=== PATIENT | male | born 1965 | race Caucasian/White ===

== ENCOUNTER 2019-08-17 07:51 | Emergency (ER) | payer MEDICAID, OTHER ==
[~2019-08-17] VITALS: Ht 185.4 cm; Wt 97.0 kg
[2019-08-17 09:00] LABS: BASOPHILS # (AUTO) 0.1 X10'3 (0-0.2); BASOPHILS % (AUTO) 1.1 % (0-1); EOSINOPHILS # (AUTO) 0.3 X10'3 (0-0.9); EOSINOPHILS % (AUTO) 3.3 % (0-6); HEMATOCRIT 39.6 % (42.0-52.0); HEMOGLOBIN 13.4 g/dl (14.0-17.9); LYMPHOCYTES # (AUTO) 1.9 X10'3 (1.1-4.8); LYMPHOCYTES % (AUTO) 23.5 % (21-51); MEAN CORPUSCULAR HEMOGLOBIN 28.6 PG (27.0-31.0); MEAN CORPUSCULAR HGB CONC 33.9 g/dL (33.0-36.5); MEAN CORPUSCULAR VOLUME 84.5 FL (78-98); MEAN PLATELET VOLUME 8.3 FL (7.4-10.4); MONOCYTES % (AUTO) 11.9 % (2-12); NEUTROPHILS # (AUTO) 4.8 X10'3 (1.8-7.7); NEUTROPHILS % (AUTO) 60.2 % (42-75); PLATELET COUNT 266 X10'3 (140-440); RED BLOOD COUNT 4.69 X10'6 (4.70-6.10); RED CELL DISTRIBUTION WIDTH 13.1 % (11.5-14.5)
[2019-08-17 09:20] LABS: ALANINE AMINOTRANSFERASE 43 U/L (12-78); ALBUMIN 3.5 G/DL (3.4-5.0); ALKALINE PHOSPHATASE 96 IU/L (46-116); ANION GAP 6 (8-16); ASPARTATE AMINO TRANSFERASE 23 U/L (10-37); BILIRUBIN,TOTAL 0.4 MG/DL (0.1-1.0); BLOOD UREA NITROGEN 24 MG/DL (7-18); BUN/CREATININE RATIO 24.7 (5.4-32.0); CALCIUM 9.1 MG/DL (8.5-10.1); CHLORIDE 105 MMOL/L (99-107); CREATININE 0.97 MG/DL (0.60-1.10); GLUCOSE 305 MG/DL (70-104); POTASSIUM 4.6 MMOL/L (3.5-5.1); SODIUM 138 MMOL/L (135-145); TOTAL CARBON DIOXIDE 26.9 MMOL/L (24-32); eGFR 80 ML/MIN
[2019-08-17] MEDS ORDERED: POTA20TA19 PO (09:27)
[2019-08-17] MEDS ORDERED: FURO-149 PO (09:27)
[2019-08-17] MEDS ORDERED: MUPI22OI30 TOP (09:27)
--- NOTE | 2019-08-17 10:08 | NUR ---
276bs checked as per patients request
[2019-08-17] MEDS ORDERED: DOXY100C2 PO (10:47)
[2019-08-17 11:00] VITALS: BP 142/78
== END 2019-08-17 11:03 | disposition home or self-care (01) ==
LOC: ER 07:51
DX: S81.801A Unspecified open wound, right lower leg, initial encounter (principal); R60.0 Localized edema; E11.9 Type 2 diabetes mellitus without complications; F32.9 Major depressive disorder, single episode, unspecified; Z88.1 Allergy status to other antibiotic agents; Z79.899 Other long term (current) drug therapy; X58.XXXA Exposure to other specified factors, initial encounter; Y93.89 Activity, other specified; Y92.89 Other specified places as the place of occurrence of the external cause; Y99.8 Other external cause status
CPT/HCPCS: 36415; 80053; 82948; 85025; 93970; 99284

== ENCOUNTER 2020-06-29 14:37 | Emergency (ER) | payer MEDICAID ==
[~2020-06-29] VITALS: Ht 185.4 cm; Wt 95.5 kg
[~2020-06-29 14:37] MED LIST: FURO-149 PO; POTA20TA19 PO
[2020-06-29 14:45] VITALS: BP 139/75
[2020-06-29] MEDS ORDERED: SULF1TAB49 PO (15:08)
== END 2020-06-29 15:18 | disposition home or self-care (01) ==
LOC: ER 14:38
DX: L03.116 Cellulitis of left lower limb (principal); E11.9 Type 2 diabetes mellitus without complications; Z88.1 Allergy status to other antibiotic agents; Z88.8 Allergy status to other drugs, medicaments and biological substances; Z79.899 Other long term (current) drug therapy
CPT/HCPCS: 99283

== ENCOUNTER 2021-02-20 06:40 | Emergency (ER) | payer MEDICAID ==
[~2021-02-20] VITALS: Ht 185.4 cm; Wt 95.5 kg
[2021-02-20] MEDS ORDERED: normal saline 1000ML IV soln IVB ONE ×2 (07:05)
[2021-02-20] MEDS ORDERED: ondansetron/PF 4mg/2ml inj IV ONE (07:05)
[2021-02-20] MEDS ORDERED: pantoprazole 40 MG vial IV ONE (07:05)
[2021-02-20 07:58] LABS: BASOPHILS # (AUTO) 0.1 X10'3 (0-0.2); BASOPHILS % (AUTO) 0.7 % (0-1); EOSINOPHILS # (AUTO) 0.2 X10'3 (0-0.9); EOSINOPHILS % (AUTO) 1.7 % (0-6); HEMATOCRIT 46.3 % (42.0-52.0); HEMOGLOBIN 15.7 g/dl (14.0-17.9); LYMPHOCYTES # (AUTO) 1.8 X10'3 (1.1-4.8); LYMPHOCYTES % (AUTO) 20.6 % (21-51); MEAN CORPUSCULAR HEMOGLOBIN 28.5 PG (27.0-31.0); MEAN CORPUSCULAR HGB CONC 33.9 g/dL (33.0-36.5); MEAN CORPUSCULAR VOLUME 84.1 FL (78-98); MEAN PLATELET VOLUME 8.6 FL (7.4-10.4); MONOCYTES # (AUTO) 0.9 X10'3 (0-0.9); MONOCYTES % (AUTO) 10.6 % (2-12); NEUTROPHILS # (AUTO) 5.8 X10'3 (1.8-7.7); NEUTROPHILS % (AUTO) 66.4 % (42-75); PLATELET COUNT 270 X10'3 (140-440); WHITE BLOOD COUNT 8.8 X10'3 (4.5-11.0)
[2021-02-20 09:44] VITALS: BP 143/78
[2021-02-20 10:07] LABS: ALANINE AMINOTRANSFERASE 30 U/L (12-78); ALBUMIN 3.5 G/DL (3.4-5.0); ALKALINE PHOSPHATASE 93 IU/L (46-116); ANION GAP 12 (8-16); ASPARTATE AMINO TRANSFERASE 12 U/L (10-37); BILIRUBIN,TOTAL 0.6 MG/DL (0.1-1.0); BLOOD UREA NITROGEN 17 MG/DL (7-18); CALCIUM 8.9 MG/DL (8.5-10.1); CHLORIDE 102 MMOL/L (99-107); ETHANOL < 0.010 GM/DL (0.0-0.010); GLUCOSE 190 MG/DL (70-104); SODIUM 140 MMOL/L (135-145); TOTAL CARBON DIOXIDE 25.9 MMOL/L (24-32); TOTAL PROTEIN 7.1 G/DL (6.4-8.2); eGFR 77 ML/MIN
[2021-02-20 10:23] LABS: UA COLLECTION TYPE CLN CATCH MIDSTREAM; URINE AMPHETAMINE SCREEN POSITIVE (Neg); URINE BARBITUATE SCREEN NEGATIVE (Neg); URINE BENZODIAZEPINES SCREEN NEGATIVE (Neg); URINE CANNABINOID SCREEN NEGATIVE (Neg); URINE COCAINE SCREEN NEGATIVE (Neg); URINE METHADONE SCREEN NEGATIVE (Neg); URINE OPIATE SCREEN NEGATIVE (Neg); URINE PHENCYCLIDINE SCREEN NEGATIVE (Neg)
[2021-02-20 10:24] LABS: CLARITY,URINE CLEAR (Clear); COLOR,URINE YELLOW (Yellow); GLUCOSE, URINE NEGATIVE (Neg); KETONES,URINE 80 mg/dl (Neg); LEUKOCYTE ESTERASE ,URINE NEGATIVE (Neg); NITRITES, URINE NEGATIVE (Neg); OCCULT BLOOD,URINE NEGATIVE (Neg); PROTEIN,URINE 100 mg/dl (Neg); UROBILINOGEN,URINE 0.2 E.U/dL (0.2-1.0)
[2021-02-20 10:27] LABS: BACTERIA,URINE NONE SEEN /HPF (Neg); MUCUS STRANDS MODERATE /LPF (Neg); RBC,URINE NONE SEEN /HPF (0-2); SQUAMOUS EPITHELIAL CELL,UR NONE SEEN /LPF (FEW); WBC,URINE 0-4 /HPF (0-4)
[2021-02-20] MEDS ORDERED: PANT-47 PO (10:31)
[2021-02-20] MEDS ORDERED: ONDA8TAB13 PO (10:31)
== END 2021-02-20 10:55 | disposition home or self-care (01) ==
LOC: ER 06:41
DX: R11.10 Vomiting, unspecified (principal); F15.929 Other stimulant use, unspecified with intoxication, unspecified; E11.9 Type 2 diabetes mellitus without complications; F32.9 Major depressive disorder, single episode, unspecified; Z88.1 Allergy status to other antibiotic agents; Z79.899 Other long term (current) drug therapy
CPT/HCPCS: 36415; 71045; 80053; 80305; 80320; 81001; 83605; 84484; 85025; 93005; 96361; 96374; 96375; 99285; C9113; J2405; J7030

== ENCOUNTER 2021-08-21 08:56 | Emergency (ER) | payer MEDICAID ==
[~2021-08-21] VITALS: Ht 185.4 cm; Wt 93.2 kg
[~2021-08-21 08:56] MED LIST changes: +ONDA8TAB13 PO; +PANT-47 PO; +POTA-208 PO; -POTA20TA19 PO
[2021-08-21 11:32] LABS: BASOPHILS # (AUTO) 0.1 X10'3 (0-0.2); BASOPHILS % (AUTO) 0.8 % (0-1); EOSINOPHILS # (AUTO) 0.2 X10'3 (0-0.9); EOSINOPHILS % (AUTO) 2.3 % (0-6); HEMATOCRIT 42.8 % (42.0-52.0); HEMOGLOBIN 14.2 g/dl (14.0-17.9); LYMPHOCYTES # (AUTO) 1.4 X10'3 (1.1-4.8); LYMPHOCYTES % (AUTO) 19.4 % (21-51); MEAN CORPUSCULAR HEMOGLOBIN 28.1 PG (27.0-31.0); MEAN CORPUSCULAR HGB CONC 33.2 g/dL (33.0-36.5); MEAN CORPUSCULAR VOLUME 84.4 FL (78-98); MEAN PLATELET VOLUME 9.2 FL (7.4-10.4); MONOCYTES # (AUTO) 0.9 X10'3 (0-0.9); MONOCYTES % (AUTO) 11.6 % (2-12); NEUTROPHILS # (AUTO) 4.9 X10'3 (1.8-7.7); NEUTROPHILS % (AUTO) 65.9 % (42-75); PLATELET COUNT 265 X10'3 (140-440); RED BLOOD COUNT 5.07 X10'6 (4.70-6.10); RED CELL DISTRIBUTION WIDTH 14.1 % (11.5-14.5); WHITE BLOOD COUNT 7.4 X10'3 (4.5-11.0)
[2021-08-21 11:39] LABS: D-DIMER 0.47 MG/L FEU (0-0.50)
[2021-08-21 11:52] LABS: ALANINE AMINOTRANSFERASE 60 U/L (12-78); ALBUMIN 3.2 G/DL (3.4-5.0); ALBUMIN/GLOBULIN RATIO 0.9 (1.1-1.5); ALKALINE PHOSPHATASE 155 IU/L (46-116); ANION GAP 9 (8-16); ASPARTATE AMINO TRANSFERASE 62 U/L (10-37); BILIRUBIN,TOTAL 0.4 MG/DL (0.1-1.0); BLOOD UREA NITROGEN 24 MG/DL (7-18); BUN/CREATININE RATIO 25.5 (5.4-32.0); CALCIUM 8.8 MG/DL (8.5-10.1); CHLORIDE 106 MMOL/L (99-107); CREATININE 0.94 MG/DL (0.60-1.10); GLUCOSE 313 MG/DL (70-104); SODIUM 140 MMOL/L (135-145); TOTAL CARBON DIOXIDE 24.7 MMOL/L (24-32); TOTAL PROTEIN 6.9 G/DL (6.4-8.2); eGFR 82 ML/MIN
[2021-08-21 12:28] VITALS: BP 120/84
[2021-08-21] MEDS ORDERED: DOXY100C97 PO (13:11)
[2021-08-21] MEDS ORDERED: AMOX-580 PO (13:11)
== END 2021-08-21 13:35 | disposition home or self-care (01) ==
LOC: ER 08:56
DX: J18.9 Pneumonia, unspecified organism (principal); Z20.822 Contact with and (suspected) exposure to COVID-19; E11.9 Type 2 diabetes mellitus without complications; R06.02 Shortness of breath; R05.9 Cough, unspecified; F32.A Depression, unspecified; Z88.1 Allergy status to other antibiotic agents; Z79.899 Other long term (current) drug therapy
CPT/HCPCS: 36415; 71045; 80053; 82948; 84484; 85025; 85379; 87635; 99284; C9803

== ENCOUNTER 2021-08-25 15:43 | Inpatient (IN) | payer MEDICAID ==
[~2021-08-25] VITALS: Ht 177.8 cm; Wt 93.0 kg
[~2021-08-25 15:43] MED LIST changes: +AMOX-580 PO; +DOXY100C97 PO
[2021-08-25 16:43] LABS: BASOPHILS # (AUTO) 0.1 X10'3 (0-0.2); BASOPHILS % (AUTO) 0.9 % (0-1); EOSINOPHILS # (AUTO) 0.2 X10'3 (0-0.9); EOSINOPHILS % (AUTO) 2.3 % (0-6); HEMATOCRIT 42.7 % (42.0-52.0); HEMOGLOBIN 14.1 g/dl (14.0-17.9); LYMPHOCYTES # (AUTO) 1.7 X10'3 (1.1-4.8); LYMPHOCYTES % (AUTO) 19.6 % (21-51); MEAN CORPUSCULAR HEMOGLOBIN 27.6 PG (27.0-31.0); MEAN CORPUSCULAR HGB CONC 33.1 g/dL (33.0-36.5); MEAN CORPUSCULAR VOLUME 83.4 FL (78-98); MEAN PLATELET VOLUME 8.8 FL (7.4-10.4); MONOCYTES # (AUTO) 0.9 X10'3 (0-0.9); MONOCYTES % (AUTO) 10.1 % (2-12); NEUTROPHILS # (AUTO) 5.7 X10'3 (1.8-7.7); NEUTROPHILS % (AUTO) 67.1 % (42-75); PLATELET COUNT 293 X10'3 (140-440); RED BLOOD COUNT 5.12 X10'6 (4.70-6.10); RED CELL DISTRIBUTION WIDTH 13.9 % (11.5-14.5); WHITE BLOOD COUNT 8.5 X10'3 (4.5-11.0)
[2021-08-25 16:50] LABS: D-DIMER 0.47 MG/L FEU (0-0.50)
[2021-08-25 17:02] LABS: ALANINE AMINOTRANSFERASE 44 U/L (12-78); ALBUMIN 3.2 G/DL (3.4-5.0); ALBUMIN/GLOBULIN RATIO 0.9 (1.1-1.5); ALKALINE PHOSPHATASE 133 IU/L (46-116); ANION GAP 11 (8-16); ASPARTATE AMINO TRANSFERASE 20 U/L (10-37); BILIRUBIN,TOTAL 0.6 MG/DL (0.1-1.0); BLOOD UREA NITROGEN 19 MG/DL (7-18); BUN/CREATININE RATIO 24.4 (5.4-32.0); CALCIUM 8.9 MG/DL (8.5-10.1); CHLORIDE 105 MMOL/L (99-107); CREATININE 0.78 MG/DL (0.60-1.10); GLUCOSE 315 MG/DL (70-104); POTASSIUM 4.7 MMOL/L (3.5-5.1); SODIUM 136 MMOL/L (135-145); TOTAL CARBON DIOXIDE 19.9 MMOL/L (24-32); TOTAL PROTEIN 6.6 G/DL (6.4-8.2); eGFR > 90 ML/MIN
[2021-08-25] MEDS ORDERED: iohexol 350MG/ML 100ml bottle IV ONE (17:30)
--- NOTE | 2021-08-25 17:41 | NUR ---
Pt up to bathroom. States he is steady on his feet and doesn't need O2. Persistently refused bedside commode.
--- NOTE | 2021-08-25 17:59 | NUR ---
When i mentioned to pt that the doc needed a UA. Pt said, "what are they going to test it for?" "because i went to a constitution party the other day and I don't want to expose it or whatever."
--- NOTE | 2021-08-25 18:43 | NUR ---
Note césar in EDM - 08/25/21 at 1851 by JAIRO assumed care of patient from Ezra Ramirez+[id number]. Diminished lung sounds, wet cough. Skin warm and dry. awaiting room. patient updated, requesting to eat.
--- NOTE | 2021-08-25 18:48 | NUR ---
Bonifacio bradyashish in [facility] - 08/25/21 at 1850 by JAIRO PATIENT AMBULATES TO BATHROOM, GAIT STEADY
[2021-08-25 20:44] LABS: URINE AMPHETAMINE SCREEN POSITIVE (Neg); URINE BARBITUATE SCREEN NEGATIVE (Neg); URINE BENZODIAZEPINES SCREEN NEGATIVE (Neg); URINE CANNABINOID SCREEN NEGATIVE (Neg); URINE COCAINE SCREEN NEGATIVE (Neg); URINE METHADONE SCREEN NEGATIVE (Neg); URINE OPIATE SCREEN NEGATIVE (Neg); URINE PHENCYCLIDINE SCREEN NEGATIVE (Neg)
[2021-08-25] MEDS ORDERED: mag hydrox/Alum hydrox/simeth 30ml oral suspension PO PRN (20:45)
[2021-08-25] MEDS ORDERED: HYDROcodone/acetaminophen 5mg/325mg tablet PO PRN (20:45)
[2021-08-25] MEDS ORDERED: acetaminophen 325mg tablet PO PRN ×2 (20:45)
[2021-08-25] MEDS ORDERED: ipratropium/albuterol 3ml nebule NEB PRN (20:45)
[2021-08-25] MEDS ORDERED: magnesium hydroxide 30ml (MOM) UD suspension PO PRN (20:45)
[2021-08-25] MEDS ORDERED: acetaminophen 650mg rectal suppository RC PRN (20:45)
[2021-08-25] MEDS ORDERED: morphine 2 MG/ML inj. syringe IV PRN ×2 (20:45)
[2021-08-25] MEDS ORDERED: ondansetron 4mg rapidly disintigrating tab PO PRN (20:45)
[2021-08-25] MEDS ORDERED: HYDROcodone/acetaminophen 10/325mg tab PO PRN (20:45)
[2021-08-25] MEDS ORDERED: diphenhydrAMINE 25mg capsule PO PRN (20:45)
[2021-08-25] MEDS ORDERED: diphenhydrAMINE 50 mg/ml inj IV PRN (20:45)
[2021-08-25] MEDS ORDERED: ondansetron/PF 4mg/2ml inj IV PRN (20:45)
[2021-08-25] MEDS ORDERED: bisacodyl 10mg suppository rectal RC PRN (20:45)
[2021-08-25] MEDS ORDERED: ROSU20TA31 PO (20:55)
[2021-08-25] MEDS ORDERED: dextrose 50%-water 50ml dispensing syringe IV PRN ×2 (20:55)
[2021-08-25] MEDS ORDERED: MESSAGE TO PHARMACY PO ONE (20:55)
[2021-08-25] MEDS ORDERED: glucagon, human recombinant 1mg kit SUBCUT PRN (20:55)
[2021-08-25] MEDS ORDERED: INSU100I48 SQ (20:55)
[2021-08-25] MEDS ORDERED: INSU100I71 SQ (20:55)
[2021-08-25] MEDS ORDERED: DEXTROSE 15 GM of carb/4 tabs (each vial/BOTTLE has 4 tablets) PO PRN ×2 (20:55)
[2021-08-25] MEDS ORDERED: insulin glargine (Lantus) pen - multi-dose SQ SCH (21:00)
[2021-08-25 21:11] LABS: HEMOGLOBIN A1C 10.6 % (4.5-6.2)
[2021-08-25 21:11] LABS: CLARITY,URINE CLEAR (Clear); COLOR,URINE YELLOW (Yellow); GLUCOSE, URINE 500 mg/dl (Neg); KETONES,URINE NEGATIVE (Neg); LEUKOCYTE ESTERASE ,URINE NEGATIVE (Neg); NITRITES, URINE NEGATIVE (Neg); OCCULT BLOOD,URINE TRACE-INTACT (Neg); PH,URINE 5.5 (4.8-8.0); PROTEIN,URINE 100 mg/dl (Neg); UROBILINOGEN,URINE 0.2 E.U/dL (0.2-1.0)
[2021-08-25] MEDS ORDERED: NPH,100V SQ (21:15)
[2021-08-25 21:23] LABS: UA COLLECTION TYPE VOIDED
[2021-08-25 21:25] LABS: RBC,URINE 0-2 /HPF (0-2); WBC,URINE 0-4 /HPF (0-4)
[2021-08-25 21:26] LABS: BACTERIA,URINE NONE SEEN /HPF (Neg)
[2021-08-25 21:27] LABS: SQUAMOUS EPITHELIAL CELL,UR FEW /LPF (FEW)
[2021-08-25 21:28] LABS: LIPASE < 50 U/L (73-393); MAGNESIUM 2.1 MG/DL (1.5-2.4)
[2021-08-25] MEDS: furosemide 10 MG/1 ML 10ml inj IV SCH (21:31)
[2021-08-25 21:39] LABS: MUCUS STRANDS FEW /LPF (Neg)
[2021-08-25 21:44] LABS: APTT 28 SECONDS (22-32)
[2021-08-25 21:51] LABS: CREATINE KINASE 149 U/L (39-308)
[2021-08-25 23:00] VITALS: BP 122/87
[2021-08-25] MEDS: methylPREDNISolone sod succ 125mg/2ml vial IV SCH (23:56)
[2021-08-25] MEDS: heparin, porcine 5000 units/ml vial SQ SCH (23:57)
[2021-08-26] MEDS: temazepam 15mg capsule PO PRN ×2 (01:53→23:33)
[2021-08-26 06:00] VITALS: BP 124/85
[2021-08-26 07:13] LABS: BASOPHILS % (AUTO) 0.3 % (0-1); EOSINOPHILS % (AUTO) 0.3 % (0-6); HEMATOCRIT 45.7 % (42.0-52.0); HEMOGLOBIN 15.1 g/dl (14.0-17.9); LYMPHOCYTES # (AUTO) 0.8 X10'3 (1.1-4.8); LYMPHOCYTES % (AUTO) 11.4 % (21-51); MEAN CORPUSCULAR HEMOGLOBIN 27.7 PG (27.0-31.0); MEAN CORPUSCULAR HGB CONC 32.9 g/dL (33.0-36.5); MEAN CORPUSCULAR VOLUME 84.3 FL (78-98); MEAN PLATELET VOLUME 9.3 FL (7.4-10.4); MONOCYTES # (AUTO) 0.2 X10'3 (0-0.9); MONOCYTES % (AUTO) 2.1 % (2-12); NEUTROPHILS # (AUTO) 6.3 X10'3 (1.8-7.7); NEUTROPHILS % (AUTO) 85.9 % (42-75); PLATELET COUNT 320 X10'3 (140-440); RED BLOOD COUNT 5.42 X10'6 (4.70-6.10); WHITE BLOOD COUNT 7.3 X10'3 (4.5-11.0)
[2021-08-26 07:53] LABS: ALANINE AMINOTRANSFERASE 43 U/L (12-78); ALBUMIN 3.3 G/DL (3.4-5.0); ALBUMIN/GLOBULIN RATIO 0.9 (1.1-1.5); ALKALINE PHOSPHATASE 142 IU/L (46-116); ANION GAP 16 (8-16); ASPARTATE AMINO TRANSFERASE 15 U/L (10-37); BILIRUBIN,TOTAL 0.8 MG/DL (0.1-1.0); BLOOD UREA NITROGEN 23 MG/DL (7-18); BUN/CREATININE RATIO 21.3 (5.4-32.0); CALCIUM 9.1 MG/DL (8.5-10.1); CHLORIDE 100 MMOL/L (99-107); CHOLESTEROL 194 MG/DL (0-200); CREATININE 1.08 MG/DL (0.60-1.10); HDL CHOLESTEROL 48 MG/DL (35-60); POTASSIUM 5.5 MMOL/L (3.5-5.1); SODIUM 135 MMOL/L (135-145); TOTAL CARBON DIOXIDE 18.6 MMOL/L (24-32); eGFR 70 ML/MIN
[2021-08-26] MEDS ORDERED: levoFLOXACIN-Levaquin 750MG/D5 150 ML IV SCH (08:00)
[2021-08-26 08:09] LABS: LDL CHOLESTEROL 130 MG/DL (50-100); TRIGLYCERIDES 52 MG/DL (20-135)
[2021-08-26 08:20] LABS: GLUCOSE 495 MG/DL (70-104)
[2021-08-26] MEDS: methylPREDNISolone sod succ 125mg/2ml vial IV SCH ×2 (08:47→16:14)
[2021-08-26] MEDS: heparin, porcine 5000 units/ml vial SQ SCH ×3 (08:47→23:21)
[2021-08-26] MEDS: furosemide 10 MG/1 ML 10ml inj IV SCH (08:48)
[2021-08-26] MEDS: atorvastatin 20mg tablet PO SCH (08:48)
[2021-08-26] MEDS: docusate sod 100mg capsule PO SCH ×2 (08:48→19:29)
[2021-08-26] MEDS: lisinopril 5mg tablet PO SCH (08:49)
[2021-08-26] MEDS: aspirin 81mg, enteric-coated 1 TAB TABLET.DR PO SCH (08:49)
[2021-08-26] MEDS: spironolactone 25 MG tablet PO SCH (08:50)
[2021-08-26] MEDS: insulin Lispro (HumaLOG) vial - multi-dose SQ SCH ×4 (09:08→21:13)
[2021-08-26 11:00] VITALS: BP 126/89
--- NOTE | 2021-08-26 13:46 | NUR ---
DM consult: Pt w/ hx DM2 and A1c 10.6 per EMR. Attempted to wake pt several times at bedside, however pt would not wake up w/ verbal cues. Pt would benefit from DM education and will follow up at a later time. Addendum: 08/26/21 at 1346 by Rosa Han Institutional Custodian RD Amended: Links added. Addendum: 08/26/21 at [address] I have reviewed and agree with note by Institutional CustodianAshlee Zhou RD
[2021-08-26 15:00] VITALS: BP 127/86
[2021-08-26 18:00] VITALS: BP 98/66
[2021-08-26] MEDS: furosemide 40mg/4ml inj IV SCH (20:53)
[2021-08-26] MEDS: metoprolol tartrate 12.5mg (1/2 tablet) PO SCH (20:53)
[2021-08-26] MEDS ORDERED: insulin glargine (Lantus) pen - multi-dose SQ SCH (21:00)
[2021-08-26 22:00] VITALS: BP 115/69
[2021-08-27] VITALS (7 sets, daily range): BP systolic 91–113; BP diastolic 60–79
[2021-08-27 06:10] LABS: BASOPHILS % (AUTO) 0.1 % (0-1); EOSINOPHILS # (AUTO) 0.1 X10'3 (0-0.9); EOSINOPHILS % (AUTO) 0.3 % (0-6); HEMOGLOBIN 13.6 g/dl (14.0-17.9); LYMPHOCYTES # (AUTO) 2.2 X10'3 (1.1-4.8); LYMPHOCYTES % (AUTO) 12.6 % (21-51); MEAN CORPUSCULAR HEMOGLOBIN 27.6 PG (27.0-31.0); MEAN CORPUSCULAR HGB CONC 33.2 g/dL (33.0-36.5); MEAN CORPUSCULAR VOLUME 83.2 FL (78-98); MEAN PLATELET VOLUME 9.5 FL (7.4-10.4); MONOCYTES # (AUTO) 1.7 X10'3 (0-0.9); MONOCYTES % (AUTO) 9.8 % (2-12); NEUTROPHILS # (AUTO) 13.3 X10'3 (1.8-7.7); NEUTROPHILS % (AUTO) 77.2 % (42-75); PLATELET COUNT 323 X10'3 (140-440); RED BLOOD COUNT 4.92 X10'6 (4.70-6.10); RED CELL DISTRIBUTION WIDTH 13.7 % (11.5-14.5); WHITE BLOOD COUNT 17.2 X10'3 (4.5-11.0)
[2021-08-27 06:34] LABS: ALANINE AMINOTRANSFERASE 37 U/L (12-78); ALBUMIN 2.9 G/DL (3.4-5.0); ALBUMIN/GLOBULIN RATIO 0.9 (1.1-1.5); ALKALINE PHOSPHATASE 121 IU/L (46-116); ANION GAP 13 (8-16); ASPARTATE AMINO TRANSFERASE 32 U/L (10-37); BILIRUBIN,TOTAL 0.4 MG/DL (0.1-1.0); BLOOD UREA NITROGEN 46 MG/DL (7-18); BUN/CREATININE RATIO 32.2 (5.4-32.0); CALCIUM 8.6 MG/DL (8.5-10.1); CHLORIDE 98 MMOL/L (99-107); CREATININE 1.43 MG/DL (0.60-1.10); SODIUM 134 MMOL/L (135-145); TOTAL CARBON DIOXIDE 23.2 MMOL/L (24-32); TOTAL PROTEIN 6.2 G/DL (6.4-8.2); eGFR 51 ML/MIN
[2021-08-27 06:43] LABS: GLUCOSE 480 MG/DL (70-104)
[2021-08-27] MEDS: aspirin 81mg, enteric-coated 1 TAB TABLET.DR PO SCH (08:06)
[2021-08-27] MEDS: furosemide 40mg/4ml inj IV SCH (08:06)
[2021-08-27] MEDS: atorvastatin 20mg tablet PO SCH (08:06)
[2021-08-27] MEDS: docusate sod 100mg capsule PO SCH ×2 (08:06→20:28)
[2021-08-27] MEDS: lisinopril 5mg tablet PO SCH (08:07)
[2021-08-27] MEDS: metoprolol tartrate 12.5mg (1/2 tablet) PO SCH ×2 (08:07→20:00)
[2021-08-27] MEDS: spironolactone 25 MG tablet PO SCH (08:08)
[2021-08-27] MEDS: insulin Lispro (HumaLOG) vial - multi-dose SQ SCH ×2 (08:19→12:42)
[2021-08-27 12:26] LABS: BFSOURCE RIGHT PLEURAL FLD; PLEURAL FLUID PH 7.384 (7.63-7.65)
[2021-08-27 12:56] LABS: GLUCOSE,BODY FLUID 482 MG/DL; LDH,BODY FLUID 102 U/L; TOTAL PROTEIN,BODY FLUID 2.5 G/DL
--- NOTE | 2021-08-27 13:20 | NUR ---
F/U DM consult: property management intern provided pt w/ written and verbal DM education at bedside w/ RD contact information. All questions answered at this time. Will remain available. Addendum: 08/27/21 at 1320 by Rosa Han Plunket Nurse RD Amended: Links added. Addendum: 08/27/21 at [address] I have reviewed and agree with note by Plunket Nurse. URI Zhou
[2021-08-27 13:30] LABS: BF WBC COUNT 1425 /CU MM (0-1000); BFAPPEAR CLOUDY; BFCOLOR YELLOW; BFVOLUME 53 ML; EOSINOPHILS,BODY FLUID 1 %; LYMPHOCYTES,BODY FLUID 77 %; MONOCYTES,BODY FLUID 17 %; NEUTROPHILS,BODY FLUID 5 %
[2021-08-27 13:31] LABS: BF MESOTHELIAL CELLS MODERATE; BF RBC COUNT 3450 /CU MM
--- NOTE | 2021-08-27 18:35 | NUR ---
Received report from PHILLIP Amezquita, Patient resting in bed comfortably.
--- NOTE | 2021-08-27 18:57 | NUR ---
I have received report from PHILLIP Amezquita and had the opportunity to ask questions and assume patient care.
[2021-08-27] MEDS: furosemide 20 MG/2 ML vial IV SCH (20:00)
[2021-08-27] MEDS ORDERED: insulin glargine (Lantus) pen - multi-dose SQ SCH (21:00)
[2021-08-28] MEDS: heparin, porcine 5000 units/ml vial SQ SCH ×3 (00:05→16:00)
[2021-08-28 03:16] VITALS: BP 106/71
[2021-08-28 06:00] VITALS: BP 101/63
--- NOTE | 2021-08-28 06:12 | NUR ---
I agree with ADELE Galarza student assessments, documentation, and report given to PHILLIP Amezquita
--- NOTE | 2021-08-28 06:15 | NUR ---
Patient report given, questions answered & plan of care reviewed with PHILLIP Amezquita.
[2021-08-28 06:20] LABS: BASOPHILS # (AUTO) 0.1 X10'3 (0-0.2); BASOPHILS % (AUTO) 1.2 % (0-1); EOSINOPHILS # (AUTO) 0.3 X10'3 (0-0.9); EOSINOPHILS % (AUTO) 2.9 % (0-6); HEMATOCRIT 42.4 % (42.0-52.0); HEMOGLOBIN 14.1 g/dl (14.0-17.9); LYMPHOCYTES # (AUTO) 2.6 X10'3 (1.1-4.8); LYMPHOCYTES % (AUTO) 27.6 % (21-51); MEAN CORPUSCULAR HEMOGLOBIN 27.9 PG (27.0-31.0); MEAN CORPUSCULAR HGB CONC 33.4 g/dL (33.0-36.5); MEAN CORPUSCULAR VOLUME 83.7 FL (78-98); MEAN PLATELET VOLUME 9.4 FL (7.4-10.4); MONOCYTES # (AUTO) 0.9 X10'3 (0-0.9); NEUTROPHILS # (AUTO) 5.5 X10'3 (1.8-7.7); NEUTROPHILS % (AUTO) 58.3 % (42-75); PLATELET COUNT 289 X10'3 (140-440); RED BLOOD COUNT 5.06 X10'6 (4.70-6.10); WHITE BLOOD COUNT 9.4 X10'3 (4.5-11.0)
[2021-08-28 06:37] LABS: ALANINE AMINOTRANSFERASE 38 U/L (12-78); ALBUMIN 2.8 G/DL (3.4-5.0); ALBUMIN/GLOBULIN RATIO 0.9 (1.1-1.5); ALKALINE PHOSPHATASE 118 IU/L (46-116); ANION GAP 11 (8-16); ASPARTATE AMINO TRANSFERASE 29 U/L (10-37); BILIRUBIN,TOTAL 0.7 MG/DL (0.1-1.0); BLOOD UREA NITROGEN 36 MG/DL (7-18); CALCIUM 8.4 MG/DL (8.5-10.1); CHLORIDE 101 MMOL/L (99-107); CREATININE 1.16 MG/DL (0.60-1.10); GLUCOSE 385 MG/DL (70-104); POTASSIUM 4.6 MMOL/L (3.5-5.1); SODIUM 136 MMOL/L (135-145); eGFR 65 ML/MIN
[2021-08-28] MEDS: docusate sod 100mg capsule PO SCH (07:38)
[2021-08-28] MEDS: atorvastatin 20mg tablet PO SCH (07:38)
[2021-08-28] MEDS: furosemide 20 MG/2 ML vial IV SCH (07:38)
[2021-08-28] MEDS: lisinopril 5mg tablet PO SCH (07:39)
[2021-08-28] MEDS: metoprolol tartrate 12.5mg (1/2 tablet) PO SCH (07:39)
[2021-08-28] MEDS: aspirin 81mg, enteric-coated 1 TAB TABLET.DR PO SCH (07:39)
[2021-08-28] MEDS: spironolactone 25 MG tablet PO SCH (07:44)
[2021-08-28] MEDS: insulin Lispro (HumaLOG) vial - multi-dose SQ SCH ×2 (08:42→13:30)
[2021-08-28 11:00] VITALS: BP 102/56
[2021-08-28] MEDS ORDERED: CARV3.122 PO (12:14)
[2021-08-28] MEDS ORDERED: LISI5TAB22 PO (12:14)
[2021-08-28] MEDS ORDERED: FURO20TA4 PO (12:14)
[2021-08-28] MEDS ORDERED: ASPI-1071 PO (12:14)
[2021-08-28] MEDS ORDERED: SPIR25TA PO (12:14)
--- NOTE | 2021-08-28 18:30 | NUR ---
Received report from PHILLIP Amezquita that this patient is discharged and every step of the discharge process has been completed. Patient is currently eating dinner and stated he is waiting for his girlfriend to pick him up. No further concerns at this time
--- NOTE | 2021-08-28 19:41 | NUR ---
Patient was wheeled out of the unit at 1940 in good condition. Was picked up by a family member.
== END 2021-08-28 19:40 | disposition home or self-care (01) | DRG 194 ==
LOC: ER 15:43 → ED HOLD 20:51 → PCU 3S 23:33
PROVIDERS: ADMIT Family Medicine; ATTEND Family Medicine
PROC: B32T1ZZ Computerized Tomography (CT Scan) of Left Pulmonary Artery using Low Osmolar Contrast (ICD-10-PCS; 2021-08-25)
PROC: B3201ZZ Computerized Tomography (CT Scan) of Thoracic Aorta using Low Osmolar Contrast (ICD-10-PCS; 2021-08-25)
PROC: B32S1ZZ Computerized Tomography (CT Scan) of Right Pulmonary Artery using Low Osmolar Contrast (ICD-10-PCS; 2021-08-25)
PROC: 0W9B3ZZ Drainage of Left Pleural Cavity, Percutaneous Approach (ICD-10-PCS; principal; 2021-08-27)
PROC: 0W993ZZ Drainage of Right Pleural Cavity, Percutaneous Approach (ICD-10-PCS; 2021-08-27)
DX: I50.23 Acute on chronic systolic (congestive) heart failure (principal); J96.01 Acute respiratory failure with hypoxia; I82.403 Acute embolism and thrombosis of unspecified deep veins of lower extremity, bilateral; E87.3 Alkalosis; J91.8 Pleural effusion in other conditions classified elsewhere; D72.829 Elevated white blood cell count, unspecified; E11.65 Type 2 diabetes mellitus with hyperglycemia; Z20.822 Contact with and (suspected) exposure to COVID-19; I42.7 Cardiomyopathy due to drug and external agent; T36.4X5A Adverse effect of tetracyclines, initial encounter; E78.5 Hyperlipidemia, unspecified; I42.0 Dilated cardiomyopathy; E87.5 Hyperkalemia; F15.10 Other stimulant abuse, uncomplicated; J45.909 Unspecified asthma, uncomplicated; F32.A Depression, unspecified; J98.11 Atelectasis; Z87.01 Personal history of pneumonia (recurrent); Z87.891 Personal history of nicotine dependence; Z88.8 Allergy status to other drugs, medicaments and biological substances; Z79.899 Other long term (current) drug therapy; Z79.4 Long term (current) use of insulin; Y92.89 Other specified places as the place of occurrence of the external cause
CPT/HCPCS: 32555; 36415; 71045; 71275; 80053; 80061; 80305; 81001; 82550; 82945; 82948; 83036; 83605; 83615; 83690; 83735; 83880; 83986; 84100; 84157; 84443; 85025; 85379; 85610; 85730; 87040; 87070; 87081; 87635; 89051; 93005; 93306; 94760; 99285; G0378; J1644; J1815; J1940; J1956; J2930; Q9967

== ENCOUNTER 2022-03-09 21:10 | Emergency (ER) | payer MEDICAID ==
[~2022-03-09] VITALS: Ht 185.4 cm; Wt 90.8 kg
[~2022-03-09 21:10] MED LIST changes: -AMOX-580 PO; +ASPI-1071 PO; +CARV3.122 PO; -DOXY100C97 PO; -FURO-149 PO; +FURO20TA4 PO; +INSU100I48 SQ; +LISI5TAB22 PO; +NPH,100V SQ; -ONDA8TAB13 PO; -PANT-47 PO; -POTA-208 PO; +ROSU20TA31 PO; +SPIR25TA PO
[2022-03-09 21:31] VITALS: BP 138/83
[2022-03-09] MEDS ORDERED: CLIN150C2 PO (23:33)
[2022-03-09] MEDS ORDERED: NAPR-56 PO (23:33)
[2022-03-09] MEDS ORDERED: naproxen 500mg tablet PO ONE (23:35)
[2022-03-09] MEDS ORDERED: clindamycin 150mg capsule PO ONE (23:35)
== END 2022-03-09 23:54 | disposition home or self-care (01) ==
LOC: ER 21:10
DX: K08.89 Other specified disorders of teeth and supporting structures (principal); I51.9 Heart disease, unspecified; E11.9 Type 2 diabetes mellitus without complications; F32.A Depression, unspecified; Z88.8 Allergy status to other drugs, medicaments and biological substances; Z88.1 Allergy status to other antibiotic agents; Z79.82 Long term (current) use of aspirin; Z79.84 Long term (current) use of oral hypoglycemic drugs
CPT/HCPCS: 99283

== ENCOUNTER 2022-03-11 02:57 | Emergency (ER) | payer MEDICAID ==
[~2022-03-11] VITALS: Ht 185.4 cm; Wt 90.5 kg
[~2022-03-11 02:57] MED LIST changes: +CLIN150C2 PO; +NAPR-56 PO
[2022-03-11 03:26] VITALS: BP 122/71
[2022-03-11] MEDS ORDERED: AMOX-117 PO (08:10)
== END 2022-03-11 08:39 | disposition home or self-care (01) ==
LOC: ER 02:58
DX: K04.7 Periapical abscess without sinus (principal); I11.0 Hypertensive heart disease with heart failure; E11.9 Type 2 diabetes mellitus without complications; F32.A Depression, unspecified; Z88.1 Allergy status to other antibiotic agents; Z79.899 Other long term (current) drug therapy; Z79.84 Long term (current) use of oral hypoglycemic drugs
CPT/HCPCS: 99283

== ENCOUNTER 2022-09-10 17:58 | Inpatient (IN) | payer MEDICAID ==
[~2022-09-10] VITALS: Ht 185.4 cm; Wt 97.0 kg
[~2022-09-10 17:58] MED LIST changes: -CLIN150C2 PO; -NAPR-56 PO
[2022-09-10 18:27] LABS: BASOPHILS # (AUTO) 0.1 X10'3 (0-0.2); BASOPHILS % (AUTO) 1.1 % (0-1); EOSINOPHILS # (AUTO) 0.2 X10'3 (0-0.9); EOSINOPHILS % (AUTO) 2.2 % (0-6); HEMATOCRIT 44.2 % (42.0-52.0); HEMOGLOBIN 14.5 g/dl (14.0-17.9); LYMPHOCYTES # (AUTO) 2.3 X10'3 (1.1-4.8); LYMPHOCYTES % (AUTO) 23.5 % (21-51); MEAN CORPUSCULAR HEMOGLOBIN 29.1 PG (27.0-31.0); MEAN CORPUSCULAR HGB CONC 32.9 g/dL (33.0-36.5); MEAN CORPUSCULAR VOLUME 88.3 FL (78-98); MEAN PLATELET VOLUME 8.8 FL (7.4-10.4); MONOCYTES # (AUTO) 1.5 X10'3 (0-0.9); MONOCYTES % (AUTO) 14.7 % (2-12); NEUTROPHILS # (AUTO) 5.8 X10'3 (1.8-7.7); NEUTROPHILS % (AUTO) 58.5 % (42-75); PLATELET COUNT 295 X10'3 (140-440); RED CELL DISTRIBUTION WIDTH 14.9 % (11.5-14.5)
[2022-09-10 18:41] LABS: ALANINE AMINOTRANSFERASE 115 U/L (12-78); ALBUMIN 3.2 G/DL (3.4-5.0); ALBUMIN/GLOBULIN RATIO 0.9 (1.1-1.5); ALKALINE PHOSPHATASE 217 IU/L (46-116); ANION GAP 7 (8-16); ASPARTATE AMINO TRANSFERASE 39 U/L (10-37); BLOOD UREA NITROGEN 35 MG/DL (7-18); BUN/CREATININE RATIO 28.5 (10.0-20.0); CALCIUM 9.2 MG/DL (8.5-10.1); CHLORIDE 102 MMOL/L (99-107); CREATININE 1.23 MG/DL (0.60-1.10); GLUCOSE 162 MG/DL (70-104); POTASSIUM 4.5 MMOL/L (3.5-5.1); SODIUM 135 MMOL/L (135-145); TOTAL PROTEIN 6.6 G/DL (6.4-8.2); eGFR 60 ML/MIN
[2022-09-10 18:48] LABS: MAGNESIUM 2.1 MG/DL (1.5-2.4)
[2022-09-10] MEDS ORDERED: furosemide 10 MG/1 ML 10ml inj IV ONE (22:55)
[2022-09-11] MEDS ORDERED: magnesium 4gm in 100ml NS 100 ML IV PRN (00:15)
[2022-09-11] MEDS ORDERED: ondansetron/PF 4mg/2ml inj IV PRN (00:15)
[2022-09-11] MEDS ORDERED: magnesium hydroxide 30ml (MOM) UD suspension PO PRN (00:15)
[2022-09-11] MEDS ORDERED: potassium Cl 40MEQ/1/2NS 520ml 520 ML IV PRN (00:15)
[2022-09-11] MEDS ORDERED: magnesium Cl slow-release 64mg tablet PO PRN (00:15)
[2022-09-11] MEDS ORDERED: PERFLUTREN PROTEIN-A MICROSPHR (Optison) 0.22 MG/ML 3ML VIAL IV PRN (00:15)
[2022-09-11] MEDS ORDERED: mag hydrox/Alum hydrox/simeth 30ml oral suspension PO PRN (00:15)
[2022-09-11] MEDS ORDERED: potassium Cl 20 mEq SR tablet PO PRN ×2 (00:15)
[2022-09-11] MEDS ORDERED: acetaminophen 325mg tablet PO PRN (00:15)
[2022-09-11] MEDS ORDERED: DEXTROSE 15 GM of carb/4 tabs (each vial/BOTTLE has 4 tablets) PO PRN ×2 (00:25)
[2022-09-11] MEDS ORDERED: dextrose 50%-water 50ml dispensing syringe IV PRN ×2 (00:25)
[2022-09-11] MEDS ORDERED: MESSAGE TO PHARMACY PO ONE (00:25)
[2022-09-11] MEDS ORDERED: glucagon, human recombinant 1mg kit SUBCUT PRN (00:25)
[2022-09-11] MEDS ORDERED: HUM7525 SQ (01:47)
[2022-09-11] MEDS ORDERED: INSU200I4 (01:47)
[2022-09-11] MEDS ORDERED: LEVO25TA7 PO (02:47)
[2022-09-11 03:34] LABS: POTASSIUM 4.7 MMOL/L (3.5-5.1)
[2022-09-11 05:41] LABS: CLARITY,URINE CLEAR (Clear); COLOR,URINE YELLOW (Yellow); GLUCOSE, URINE NEGATIVE (Neg); KETONES,URINE NEGATIVE (Neg); LEUKOCYTE ESTERASE ,URINE NEGATIVE (Neg); NITRITES, URINE NEGATIVE (Neg); OCCULT BLOOD,URINE NEGATIVE (Neg); PH,URINE 5.5 (4.8-8.0); PROTEIN,URINE NEGATIVE (Neg); UROBILINOGEN,URINE 0.2 E.U/dL (0.2-1.0)
[2022-09-11 05:58] LABS: URINE AMPHETAMINE SCREEN POSITIVE (Neg); URINE BARBITUATE SCREEN NEGATIVE (Neg); URINE BENZODIAZEPINES SCREEN NEGATIVE (Neg); URINE CANNABINOID SCREEN NEGATIVE (Neg); URINE COCAINE SCREEN NEGATIVE (Neg); URINE METHADONE SCREEN NEGATIVE (Neg); URINE OPIATE SCREEN NEGATIVE (Neg); URINE PHENCYCLIDINE SCREEN NEGATIVE (Neg)
[2022-09-11 06:17] LABS: UA COLLECTION TYPE URINAL
[2022-09-11] MEDS: ROSUVASTATIN CALCIUM 5 MG TABLET PO SCH (08:00)
[2022-09-11] MEDS ORDERED: furosemide 20MG tablet PO SCH (08:00)
[2022-09-11] MEDS: heparin, porcine 5000 units/ml vial SQ SCH ×2 (08:00→21:02)
[2022-09-11] MEDS: docusate sod 100mg capsule PO SCH ×2 (08:00→20:00)
[2022-09-11] MEDS: carVEDilol 3.125mg tablet PO SCH ×2 (08:00→21:09)
[2022-09-11] MEDS: lisinopril 5mg tablet PO SCH (08:00)
[2022-09-11] MEDS: K and/or MAG REPLACEMENT MC SCH ×2 (08:00→20:00)
[2022-09-11] MEDS ORDERED: furosemide 10 MG/1 ML 10ml inj IV ONE (11:15)
--- NOTE | 2022-09-11 11:30 | NUR ---
HELD LISINOPRIL AND LASIX PER SBP 100.
[2022-09-11] MEDS: insulin Lispro (HumaLOG) vial - multi-dose SQ SCH (13:04)
--- NOTE | 2022-09-11 17:05 | NUR ---
IT ASSOCIATE called surgical unit to give report. Receiving RN is on break. RN will call back shortly.
--- NOTE | 2022-09-11 17:43 | NUR ---
Pt transferred to [facility] unit. PHILLIP Paz receiving. Report given. Pt stable. VS WNL.
--- NOTE | 2022-09-11 17:55 | NUR ---
Patient in room [facility] 347. I have received report from HUMAN RESOURCES CONSULTANT and had the opportunity to ask questions and assume patient care.
--- NOTE | 2022-09-11 17:56 | NUR ---
Patient just made familiar with the room and vital signs taken at this time. Patient blood glucose was taken upon making it to the floor.
[2022-09-11 18:04] VITALS: BP 111/75
--- NOTE | 2022-09-11 18:49 | NUR ---
Problems reprioritized. Patient report given, questions answered & plan of care reviewed with Gregoria FISHER.
[2022-09-11] MEDS ORDERED: insulin glargine (Lantus) pen - multi-dose SQ SCH (21:00)
--- NOTE | 2022-09-11 21:00 | NUR ---
Pts blood sugar 190. Reviewed with the pt his order for lantus of 35 units. Pt has declined that amount stating that that amount will drop him. Review of AMs blood sugar was 52.
[2022-09-11] MEDS: furosemide 10 MG/1 ML 10ml inj IV SCH (21:09)
[2022-09-11 22:00] VITALS: BP 106/68
[2022-09-12] MEDS ORDERED: temazepam 15mg capsule PO PRN (00:45)
[2022-09-12] MEDS ORDERED: insulin Lispro (HumaLOG) vial - multi-dose SQ STA (03:33)
--- NOTE | 2022-09-12 03:35 | NUR ---
Pt in room groaning and sitting at side of bed. Blood sugar check of 421. Dr. Field aware one time dose of 5 units Humalog, and recheck.
[2022-09-12 04:52] LABS: BASOPHILS # (AUTO) 0.1 X10'3 (0-0.2); EOSINOPHILS # (AUTO) 0.3 X10'3 (0-0.9); EOSINOPHILS % (AUTO) 3.2 % (0-6); HEMATOCRIT 42.2 % (42.0-52.0); HEMOGLOBIN 14.2 g/dl (14.0-17.9); LYMPHOCYTES # (AUTO) 2.3 X10'3 (1.1-4.8); LYMPHOCYTES % (AUTO) 22.9 % (21-51); MEAN CORPUSCULAR HEMOGLOBIN 29.4 PG (27.0-31.0); MEAN CORPUSCULAR HGB CONC 33.5 g/dL (33.0-36.5); MEAN CORPUSCULAR VOLUME 87.5 FL (78-98); MEAN PLATELET VOLUME 9.7 FL (7.4-10.4); MONOCYTES # (AUTO) 1.3 X10'3 (0-0.9); MONOCYTES % (AUTO) 13.5 % (2-12); NEUTROPHILS # (AUTO) 5.8 X10'3 (1.8-7.7); NEUTROPHILS % (AUTO) 59.4 % (42-75); PLATELET COUNT 262 X10'3 (140-440); RED BLOOD COUNT 4.82 X10'6 (4.70-6.10); RED CELL DISTRIBUTION WIDTH 14.6 % (11.5-14.5); WHITE BLOOD COUNT 9.8 X10'3 (4.5-11.0)
[2022-09-12 04:57] LABS: ALANINE AMINOTRANSFERASE 96 U/L (12-78); ALBUMIN 2.8 G/DL (3.4-5.0); ALBUMIN/GLOBULIN RATIO 0.8 (1.1-1.5); ALKALINE PHOSPHATASE 201 IU/L (46-116); ANION GAP 7 (8-16); ASPARTATE AMINO TRANSFERASE 53 U/L (10-37); BILIRUBIN,TOTAL 0.7 MG/DL (0.1-1.0); BLOOD UREA NITROGEN 34 MG/DL (7-18); BUN/CREATININE RATIO 28.6 (10.0-20.0); CALCIUM 8.7 MG/DL (8.5-10.1); CHLORIDE 100 MMOL/L (99-107); CREATININE 1.19 MG/DL (0.60-1.10); GLUCOSE 401 MG/DL (70-104); POTASSIUM 4.8 MMOL/L (3.5-5.1); SODIUM 131 MMOL/L (135-145); TOTAL CARBON DIOXIDE 23.9 MMOL/L (24-32); TOTAL PROTEIN 6.1 G/DL (6.4-8.2); eGFR 63 ML/MIN
--- NOTE | 2022-09-12 06:18 | NUR ---
Problems reprioritized. Patient report given, questions answered & plan of care reviewed with Jackson RN.
[2022-09-12 06:27] VITALS: BP 112/82
--- NOTE | 2022-09-12 06:42 | NUR ---
Patient in room [facility] 347. I have received report from GRACY FISHER and had the opportunity to ask questions and assume patient care.
[2022-09-12] MEDS: K and/or MAG REPLACEMENT MC SCH (08:00)
[2022-09-12] MEDS: carVEDilol 3.125mg tablet PO SCH (08:31)
[2022-09-12] MEDS: docusate sod 100mg capsule PO SCH (08:32)
[2022-09-12] MEDS: lisinopril 5mg tablet PO SCH (08:32)
[2022-09-12] MEDS: ROSUVASTATIN CALCIUM 5 MG TABLET PO SCH (08:32)
[2022-09-12] MEDS: heparin, porcine 5000 units/ml vial SQ SCH (08:34)
[2022-09-12] MEDS: furosemide 10 MG/1 ML 10ml inj IV SCH (08:35)
[2022-09-12] MEDS: insulin Lispro (HumaLOG) vial - multi-dose SQ SCH (08:54)
[2022-09-12 11:46] VITALS: BP 122/82
[2022-09-12] MEDS ORDERED: EMPA10TA PO (14:36)
--- NOTE | 2022-09-12 14:39 | NUR ---
DM Consult: Pt admit DX CHF exacerbation and positive for meth hx T1DM A1C 10.0% takes Novolin 20 units TID and Humilin N BID 32 units per EMR. Pt unable to stay awake during RD visit was agreeable to written DM diet ed w/ RD contact information placed on bedside. RD encouraged pt to contact dietitian's office if nutrition questions/concerns. Pt reports takes basal coverage once daily w/ meal coverage TID and no issues w/ insulin supply. Pt then persistently fell asleep mid conversation. Will remains available if further nutrition questions/concerns. Addendum: 09/12/22 at [address] Amended: Links added.
[2022-09-12] MEDS ORDERED: FURO-150 PO (14:55)
[2022-09-12] MEDS ORDERED: ASPI-611 PO (14:57)
--- NOTE | 2022-09-12 15:58 | NUR ---
Message: [id number] RE: Elle Lemon After researching Mallory, medication is not recommended for type1 DM and this patient is type1. Did you still want to Rx patient for his heart or no? Addendum: 09/12/22 at 1619 by Gerson Conner RN Confered with MD about patient type 1 DM, patient was prescribed for cardiac issue not concerned with the diabetic action of the medication at this time.
--- NOTE | 2022-09-12 16:46 | NUR ---
patient discharged home with all belongings. Patient was educated on new medication and how to take it. Patient was encouraged to stop drinking smoking and using illicit drugs. Patient was also told he needs to follow up with primary and sales agent food vending service in one weeks time. Patient expressed verbal understanding of discharge on instructions. Patient left in wheelchair during this time. IV taken out and canula was whole and intact upon inspection.
== END 2022-09-12 16:24 | disposition home or self-care (01) | DRG 194 ==
LOC: ER 17:59 → ED HOLD 09-11 00:20 → SUR 3N 09-11 17:35
PROVIDERS: ADMIT Internal Medicine; ATTEND Family Medicine
DX: I11.0 Hypertensive heart disease with heart failure (principal); I42.7 Cardiomyopathy due to drug and external agent; E10.9 Type 1 diabetes mellitus without complications; I50.9 Heart failure, unspecified; E03.9 Hypothyroidism, unspecified; E78.5 Hyperlipidemia, unspecified; F15.229 Other stimulant dependence with intoxication, unspecified; F32.A Depression, unspecified; Z79.4 Long term (current) use of insulin; Z88.1 Allergy status to other antibiotic agents; Z79.899 Other long term (current) drug therapy
CPT/HCPCS: 36415; 71045; 80053; 80305; 81003; 82948; 83036; 83735; 83880; 84132; 84145; 84443; 84484; 85025; 87081; 93005; 93306; 96374; 99285; G0378; J1644; J1940

== ENCOUNTER 2022-09-22 08:33 | Inpatient (IN) | payer MEDICAID ==
[~2022-09-22] VITALS: Ht 185.4 cm; Wt 96.5 kg
[~2022-09-22 08:33] MED LIST changes: -ASPI-1071 PO; +ASPI-611 PO; +EMPA10TA PO; +FURO-150 PO; -FURO20TA4 PO; +HUM7525 SQ; -INSU100I48 SQ; +INSU200I4; +LEVO25TA7 PO
[2022-09-22 08:57] LABS: BASOPHILS # (AUTO) 0.1 X10'3 (0-0.2); BASOPHILS % (AUTO) 0.5 % (0-1); EOSINOPHILS # (AUTO) 0.2 X10'3 (0-0.9); EOSINOPHILS % (AUTO) 1.4 % (0-6); HEMATOCRIT 49.7 % (42.0-52.0); HEMOGLOBIN 15.9 g/dl (14.0-17.9); LYMPHOCYTES # (AUTO) 3.3 X10'3 (1.1-4.8); LYMPHOCYTES % (AUTO) 21.1 % (21-51); MEAN CORPUSCULAR VOLUME 90.6 FL (78-98); MONOCYTES # (AUTO) 2.4 X10'3 (0-0.9); MONOCYTES % (AUTO) 15.6 % (2-12); NEUTROPHILS # (AUTO) 9.5 X10'3 (1.8-7.7); NEUTROPHILS % (AUTO) 61.4 % (42-75); PLATELET COUNT 338 X10'3 (140-440); RED BLOOD COUNT 5.49 X10'6 (4.70-6.10); RED CELL DISTRIBUTION WIDTH 15.8 % (11.5-14.5); WHITE BLOOD COUNT 15.5 X10'3 (4.5-11.0)
[2022-09-22 09:27] LABS: ALANINE AMINOTRANSFERASE 262 U/L (12-78); ALBUMIN 3.2 G/DL (3.4-5.0); ALBUMIN/GLOBULIN RATIO 0.9 (1.1-1.5); ALKALINE PHOSPHATASE 421 IU/L (46-116); ANION GAP 13 (8-16); ASPARTATE AMINO TRANSFERASE 128 U/L (10-37); BILIRUBIN,TOTAL 2.6 MG/DL (0.1-1.0); BLOOD UREA NITROGEN 75 MG/DL (7-18); BUN/CREATININE RATIO 39.1 (10.0-20.0); CALCIUM 9.4 MG/DL (8.5-10.1); CHLORIDE 95 MMOL/L (99-107); CREATININE 1.92 MG/DL (0.60-1.10); GLUCOSE 60 MG/DL (70-104); POTASSIUM 5.2 MMOL/L (3.5-5.1); SODIUM 131 MMOL/L (135-145); TOTAL PROTEIN 6.6 G/DL (6.4-8.2); eGFR 36 ML/MIN
[2022-09-22 09:34] LABS: MAGNESIUM 3.2 MG/DL (1.5-2.4)
[2022-09-22 09:37] LABS: PLATELET ESTIMATE NORMAL
[2022-09-22 09:38] LABS: BURR CELLS 2+; POLYCHROMASIA FEW; SCHISTOCYTES FEW
[2022-09-22] MEDS ORDERED: magnesium hydroxide 30ml (MOM) UD suspension PO PRN (15:00)
[2022-09-22] MEDS ORDERED: HYDROcodone/acetaminophen 5mg/325mg tablet PO PRN (15:00)
[2022-09-22] MEDS ORDERED: dextrose 50%-water 50ml dispensing syringe IV PRN ×2 (15:00)
[2022-09-22] MEDS ORDERED: acetaminophen 325mg tablet PO PRN ×2 (15:00)
[2022-09-22] MEDS ORDERED: glucagon, human recombinant 1mg kit SUBCUT PRN (15:00)
[2022-09-22] MEDS ORDERED: ondansetron/PF 4mg/2ml inj IV PRN (15:00)
[2022-09-22] MEDS ORDERED: MESSAGE TO PHARMACY PO ONE (15:00)
[2022-09-22] MEDS ORDERED: mag hydrox/Alum hydrox/simeth 30ml oral suspension PO PRN (15:00)
[2022-09-22] MEDS ORDERED: morphine 2 MG/ML inj. syringe IV PRN ×2 (15:00)
[2022-09-22] MEDS ORDERED: DEXTROSE 15 GM of carb/4 tabs (each vial/BOTTLE has 4 tablets) PO PRN ×2 (15:00)
[2022-09-22] MEDS ORDERED: NOVLG SQ (15:39)
[2022-09-22] MEDS ORDERED: INSU200I4 SQ (15:39)
[2022-09-22] MEDS ORDERED: CARV3.1244 PO (15:42)
[2022-09-22] MEDS ORDERED: POTA10TA PO (15:42)
[2022-09-22] MEDS ORDERED: SPIR25TA5 PO (15:42)
[2022-09-22] MEDS ORDERED: ROSU20TA2 PO (15:42)
[2022-09-22] MEDS ORDERED: LISI5TAB22 PO (15:42)
[2022-09-22] MEDS ORDERED: FURO20TA4 PO (15:42)
[2022-09-22] MEDS ORDERED: LEVO25CA4 PO (15:42)
[2022-09-22] MEDS: furosemide 40mg/4ml inj IV SCH ×2 (16:02→20:00)
[2022-09-22 17:56] LABS: CLARITY,URINE CLEAR (Clear); COLOR,URINE YELLOW (Yellow); GLUCOSE, URINE NEGATIVE (Neg); KETONES,URINE NEGATIVE (Neg); LEUKOCYTE ESTERASE ,URINE NEGATIVE (Neg); NITRITES, URINE NEGATIVE (Neg); OCCULT BLOOD,URINE NEGATIVE (Neg); PH,URINE 5.5 (4.8-8.0); PROTEIN,URINE TRACE mg/dl (Neg)
[2022-09-22 17:57] LABS: UA COLLECTION TYPE VOIDED
[2022-09-22] MEDS ORDERED: Insulin ASPART (NovoLOG) pen SQ PRN (18:00)
[2022-09-22 18:11] LABS: HYALINE CASTS 0-3 /LPF (NEGATIVE); SQUAMOUS EPITHELIAL CELL,UR FEW /LPF (FEW)
[2022-09-22 18:12] LABS: BACTERIA,URINE FEW /HPF (Neg); RBC,URINE 0-2 /HPF (0-2); WBC,URINE 0-4 /HPF (0-4)
[2022-09-22 18:34] LABS: URINE AMPHETAMINE SCREEN NEGATIVE (Neg); URINE BARBITUATE SCREEN NEGATIVE (Neg); URINE BENZODIAZEPINES SCREEN NEGATIVE (Neg); URINE CANNABINOID SCREEN NEGATIVE (Neg); URINE COCAINE SCREEN NEGATIVE (Neg); URINE METHADONE SCREEN NEGATIVE (Neg); URINE OPIATE SCREEN NEGATIVE (Neg); URINE PHENCYCLIDINE SCREEN NEGATIVE (Neg)
[2022-09-22] MEDS: docusate sod 100mg capsule PO SCH (20:00)
[2022-09-22] MEDS: carVEDilol 3.125mg tablet PO SCH (20:00)
[2022-09-22 23:00] VITALS: BP 103/72
[2022-09-22] MEDS: insulin glargine (Lantus) pen - multi-dose SQ SCH (23:47)
[2022-09-23] VITALS (8 sets, daily range): BP systolic 90–111; BP diastolic 58–77
[2022-09-23] MEDS: HYDROcodone/acetaminophen 10/325mg tab PO PRN ×2 (01:00→20:42)
--- NOTE | 2022-09-23 06:40 | NUR ---
Problems reprioritized. Patient report given, questions answered & plan of care reviewed with PHILLIP Balbuena.
[2022-09-23] MEDS: levoTHYROXINE 25mcg tablet PO SCH (07:00)
[2022-09-23 07:17] LABS: BASOPHILS # (AUTO) 0.1 X10'3 (0-0.2); EOSINOPHILS # (AUTO) 0.4 X10'3 (0-0.9); MEAN CORPUSCULAR VOLUME 89.9 FL (78-98); WHITE BLOOD COUNT 10.2 X10'3 (4.5-11.0)
[2022-09-23 07:23] LABS: BASOPHILS % (AUTO) 0.7 % (0-1); EOSINOPHILS % (AUTO) 4.1 % (0-6); HEMATOCRIT 45.4 % (42.0-52.0); LYMPHOCYTES # (AUTO) 2.7 X10'3 (1.1-4.8); LYMPHOCYTES % (AUTO) 26.3 % (21-51); MEAN CORPUSCULAR HEMOGLOBIN 29.7 PG (27.0-31.0); MEAN CORPUSCULAR HGB CONC 33.1 g/dL (33.0-36.5); MEAN PLATELET VOLUME 9.4 FL (7.4-10.4); MONOCYTES # (AUTO) 1.7 X10'3 (0-0.9); MONOCYTES % (AUTO) 17.1 % (2-12); NEUTROPHILS # (AUTO) 5.3 X10'3 (1.8-7.7); NEUTROPHILS % (AUTO) 51.8 % (42-75); PLATELET COUNT 291 X10'3 (140-440); RED BLOOD COUNT 5.05 X10'6 (4.70-6.10); RED CELL DISTRIBUTION WIDTH 15.8 % (11.5-14.5)
[2022-09-23 07:27] LABS: ALBUMIN 2.6 G/DL (3.4-5.0); ANION GAP 10 (8-16); BLOOD UREA NITROGEN 69 MG/DL (7-18); BUN/CREATININE RATIO 48.6 (10.0-20.0); CALCIUM 8.5 MG/DL (8.5-10.1); CHLORIDE 98 MMOL/L (99-107); CREATININE 1.42 MG/DL (0.60-1.10); GLUCOSE 149 MG/DL (70-104); POTASSIUM 4.2 MMOL/L (3.5-5.1); SODIUM 130 MMOL/L (135-145); TOTAL CARBON DIOXIDE 22.1 MMOL/L (24-32); eGFR 51 ML/MIN
[2022-09-23] MEDS: spironolactone 25 MG tablet PO SCH (08:55)
[2022-09-23] MEDS: atorvastatin 20mg tablet PO SCH (08:56)
[2022-09-23] MEDS: carVEDilol 3.125mg tablet PO SCH ×2 (08:56→19:39)
[2022-09-23] MEDS: potassium chloride 10mEq ER tablet PO SCH (08:56)
[2022-09-23] MEDS: lisinopril 5mg tablet PO SCH (08:57)
[2022-09-23] MEDS: docusate sod 100mg capsule PO SCH ×2 (08:58→19:37)
[2022-09-23] MEDS: furosemide 40mg/4ml inj IV SCH ×2 (08:58→19:39)
[2022-09-23] MEDS: enoxaparin 40mg/0.4ml syringe SUBCUT SCH (08:58)
[2022-09-23] MEDS: insulin Lispro (HumaLOG) vial - multi-dose SQ SCH (19:45)
--- NOTE | 2022-09-23 21:00 | NUR ---
BED ALARM RESUMED ON PATIENT.
[2022-09-23] MEDS: insulin glargine (Lantus) pen - multi-dose SQ SCH (21:30)
[2022-09-24 02:00] VITALS: BP 97/63
[2022-09-24 06:00] VITALS: BP 103/72
--- NOTE | 2022-09-24 06:23 | NUR ---
Problems reprioritized. Patient report given, questions answered & plan of care reviewed with PHILLIP Orellana.
[2022-09-24] MEDS: carVEDilol 3.125mg tablet PO SCH (07:14)
[2022-09-24] MEDS: docusate sod 100mg capsule PO SCH (07:14)
[2022-09-24] MEDS: levoTHYROXINE 25mcg tablet PO SCH (07:14)
[2022-09-24] MEDS: potassium chloride 10mEq ER tablet PO SCH (07:14)
[2022-09-24] MEDS: furosemide 40mg/4ml inj IV SCH (07:15)
[2022-09-24] MEDS: enoxaparin 40mg/0.4ml syringe SUBCUT SCH ×2 (07:15→07:29)
[2022-09-24] MEDS: atorvastatin 20mg tablet PO SCH (07:15)
[2022-09-24 07:42] LABS: BASOPHILS # (AUTO) 0.1 X10'3 (0-0.2); BASOPHILS % (AUTO) 0.7 % (0-1); EOSINOPHILS # (AUTO) 0.4 X10'3 (0-0.9); EOSINOPHILS % (AUTO) 3.2 % (0-6); HEMATOCRIT 45.6 % (42.0-52.0); HEMOGLOBIN 14.9 g/dl (14.0-17.9); LYMPHOCYTES # (AUTO) 2.4 X10'3 (1.1-4.8); LYMPHOCYTES % (AUTO) 20.2 % (21-51); MEAN CORPUSCULAR HEMOGLOBIN 29.1 PG (27.0-31.0); MEAN CORPUSCULAR HGB CONC 32.6 g/dL (33.0-36.5); MEAN CORPUSCULAR VOLUME 89.3 FL (78-98); MEAN PLATELET VOLUME 9.9 FL (7.4-10.4); MONOCYTES # (AUTO) 1.8 X10'3 (0-0.9); MONOCYTES % (AUTO) 15.4 % (2-12); NEUTROPHILS # (AUTO) 7.1 X10'3 (1.8-7.7); NEUTROPHILS % (AUTO) 60.5 % (42-75); PLATELET COUNT 336 X10'3 (140-440); RED BLOOD COUNT 5.11 X10'6 (4.70-6.10); RED CELL DISTRIBUTION WIDTH 15.5 % (11.5-14.5); WHITE BLOOD COUNT 11.7 X10'3 (4.5-11.0)
[2022-09-24 08:00] VITALS: BP_SYST 103
[2022-09-24] MEDS: spironolactone 25 MG tablet PO SCH (08:00)
[2022-09-24] MEDS: lisinopril 5mg tablet PO SCH (08:00)
[2022-09-24 08:32] LABS: ALBUMIN 2.8 G/DL (3.4-5.0); ANION GAP 11 (8-16); BLOOD UREA NITROGEN 75 MG/DL (7-18); BUN/CREATININE RATIO 43.9 (10.0-20.0); CALCIUM 7.9 MG/DL (8.5-10.1); CHLORIDE 91 MMOL/L (99-107); CREATININE 1.71 MG/DL (0.60-1.10); GLUCOSE 382 MG/DL (70-104); SODIUM 124 MMOL/L (135-145); TOTAL CARBON DIOXIDE 21.8 MMOL/L (24-32); eGFR 41 ML/MIN
--- NOTE | 2022-09-24 08:40 | NUR ---
sent to [facility] [id number]: pt requesting dulcolax. unable to have a bowel movement. thank you. Reyna FISHER [id number]
[2022-09-24] MEDS: insulin Lispro (HumaLOG) vial - multi-dose SQ SCH (09:29)
[2022-09-24] MEDS ORDERED: FURO40TA4 PO (10:06)
--- NOTE | 2022-09-24 11:40 | NUR ---
Discharge instructions discussed with pt. Discussed all medications, low sodium diet, checking blood sugars , following up with his primary doctor. Answered all questions. pt states he understands. Removed PIV. pt awaiting a ride.
[2022-09-24] MEDS ORDERED: ondansetron 4mg rapidly disintigrating tab PO ONE (12:13)
--- NOTE | 2022-09-24 12:15 | NUR ---
pt vomiting. Received order for [place] [facility]. pt still trying to find a ride. Pt also states he needs to talk with the doctor about getting help in the home. I asked what kind of help. he stated he needs someone to come and clean his house. I explained that the doctor does not order someone to clean his house. I noted in the case resolution specialist notes that the pt has refused all other type of home care. I also printed out a handout of information regarding a low sodium diet for his chf. Pt states he understands and appreciates the extra information. If pt can't find a ride, we will provide a cab. will continue to monitor.
--- NOTE | 2022-09-24 13:45 | NUR ---
Called cab for pt to be transported home. hospital to pay for
--- NOTE | 2022-09-24 14:15 | NUR ---
Pt left unit via wheelchair for cab downstairs. Put put safely in cab.
== END 2022-09-24 14:14 | disposition home or self-care (01) | DRG 194 ==
LOC: ER 08:33 → ED HOLD 15:01 → PCU 3S 22:51
PROVIDERS: ADMIT Internal Medicine; ATTEND Internal Medicine
DX: I11.0 Hypertensive heart disease with heart failure (principal); N17.0 Acute kidney failure with tubular necrosis; I50.23 Acute on chronic systolic (congestive) heart failure; E03.9 Hypothyroidism, unspecified; E11.9 Type 2 diabetes mellitus without complications; E78.5 Hyperlipidemia, unspecified; E87.1 Hypo-osmolality and hyponatremia; E87.5 Hyperkalemia; F32.A Depression, unspecified; Z79.4 Long term (current) use of insulin; Z79.899 Other long term (current) drug therapy; Z83.3 Family history of diabetes mellitus; Z88.1 Allergy status to other antibiotic agents
CPT/HCPCS: 36415; 71045; 80048; 80053; 80305; 81001; 82948; 83735; 83880; 84145; 84484; 85008; 85025; 87081; 99285; A4615; G0378; J1650; J1815; J1940